=== PATIENT | female | born 1930 | race Two or more races ===

== ENCOUNTER 2016-10-17 17:21 | Emergency (ER) | payer MEDICAID ==
[~2016-10-17] VITALS: Ht 144.8 cm; Wt 43.1 kg
[2016-10-17 18:48] LABS: Basophils # (auto) 0.1 uL; Basophils % (auto) 1.1 % (0.0-2.0); CONDITION Y; Eosinophils # (auto) 0.3 uL; Eosinophils % (auto) 2.8 % (0.0-7.0); Hematocrit 41.2 % (36.0-46.0); Hemoglobin 13.5 g/dL (12.2-16.2); Lymphocytes # (auto) 2.8 uL; Lymphocytes % (auto) 23.4 % (10.0-50.0); Mean Corpuscular Hemoglobin 27.9 pg (28.0-32.0); Mean Corpuscular Hgb Conc. 32.8 g/dL (32.0-36.0); Mean Corpuscular Volume 85.1 fL (80.0-100.0); Mean Platelet Volume 8.5 fL (7.4-10.4); Monocytes # (auto) 0.9 uL; Monocytes % (auto) 7.7 % (0.0-12.0); Neutrophils # (auto) 7.9 uL; Platelet Count (auto) 285 10^3/uL (140-450); Red Cell Distribution Width 16.5 % (11.6-16.0); White Blood Cell 12.2 10^3/uL (4.4-10.8)
[2016-10-17 19:17] LABS: Albumin 3.3 g/dL (3.4-5.0); BUN/Creatinine Ratio 30.3; Bilirubin, Total 0.4 mg/dL (0.2-1.0); Calcium 8.5 mg/dL (8.5-10.1); Potassium 4.2 mmol/L (3.5-5.1); Total Protein 7.2 g/dL (6.4-8.2)
[2016-10-18 00:38] LABS: Temperature: 21.7 C (20.0-25.0)
[2016-10-18 08:33] VITALS: BP 99/55
== END 2016-10-18 08:53 | disposition short-term general hospital (02) ==
LOC: ER 17:24
DX: S72.002A Fracture of unspecified part of neck of left femur, initial encounter for closed fracture (principal); S32.030A Wedge compression fracture of third lumbar vertebra, initial encounter for closed fracture; I50.9 Heart failure, unspecified; R60.0 Localized edema; W19.XXXA Unspecified fall, initial encounter; Y93.89 Activity, other specified; Y99.8 Other external cause status; Y92.89 Other specified places as the place of occurrence of the external cause
CPT/HCPCS: 36415; 71010; 72131; 73700; 80053; 83880; 84484; 85025